=== PATIENT | female | born 1985 | race American Indian/Alaskan Native ===

== ENCOUNTER 2021-04-12 11:35 | Emergency (ER) | payer OTHER ==
[2021-04-12 11:44] VITALS: BP 166/104
[2021-04-12] MEDS ORDERED: IPRATROPIUM 0.02% NEBU 2.5 ML IH ONE (11:47)
[2021-04-12] MEDS ORDERED: methylPREDNISolone Sod Succinate 125 MG/2 ML INJ IM ONE (11:47)
[2021-04-12] MEDS ORDERED: ALBUTEROL 2.5 MG/3 ML NEBU IH ONE (11:47)
--- NOTE | 2021-04-12 11:52 | Emergency Department Report ---
ED Asthma HPI - General Chief Complaint: Dyspnea/Respdistress Stated Complaint: ASTHMA PUI?: No Time Seen by Provider: 04/12/21 11:46 Source: patient Mode of arrival: Ambulatory Limitations: No Limitations - History of Present Illness Initial Comments: The patient was evaluated in the emergency department for symptoms described in the history of present illness. He/she was evaluated in the context of the global COVID-19 pandemic, which necessitated consideration that the patient might be at risk for infection with the virus that causes COVID-19. Institutional protocols and algorithms that pertain to the evaluation of patients at risk for COVID-19 are in a state of rapid change based on information released by regulatory bodies including the CDC and federal and state organizations. These policies and algorithms were followed during the patient's care in the emergency department. Please note that these policies, procedures and recommendations changed on a rapid basis. 36-year-old -[place] female presents to the emergency room stating she has had a 2-day history of wheezing. Patient has a history of asthma states that she has been given aerosol treatments last 1 she gave this morning albuterol nebulizer 2.5 mg. She states that she continues to wheeze and was having shortness of breath when walking her daughter to the bus stop. Patient states that she is vaccinated fully. She denies any other complaints of chest wheezing and shortness of breath. Patient states she has been hospitalized for her asthma but has never been intubated. Patient states she has been compliant with her meds. Complaint: shortness of breath, wheezing Onset/Timin -: days(s) Asthma History: history of prior ED visit Severity: moderate Context: none known Treatments Prior to Arrival: inhaled bronchodilator - Related Data Current Asthma Therapy: inhaled bronchodilator Previous Rx's Medication Instructions Recorded Last Taken Type Albuterol Sulfate [Albuterol 0.63% 0.63 mg IH TID PRN #1 box 04/12/21 Unknown Rx NEBS] Ipratropium [Atrovent] 0.5 mg IH Q4HR #1 box 04/12/21 Unknown Rx Prednisone [predniSONE 5 mg (6-Day 5 mg PO .TAPER #1 tab.ds.pk 04/12/21 Unknown Rx Pack, 21 Tabs)] Allergies Allergy/AdvReac Type Severity Reaction Status Date / Time Penicillins Allergy Unknown Verified 04/12/21 11:43 ED Review of Systems ROS: Stated complaint: ASTHMA Other details as noted in HPI Comment: All other systems reviewed and negative ED Past Medical Hx - Medications Home Medications: Home Medications Medication Instructions Recorded Confirmed Last Taken Type Albuterol Sulfate [Albuterol 0.63% 0.63 mg IH TID PRN #1 box 04/12/21 Unknown Rx NEBS] Ipratropium [Atrovent] 0.5 mg IH Q4HR #1 box 04/12/21 Unknown Rx Prednisone [predniSONE 5 mg (6-Day 5 mg PO .TAPER #1 tab.ds.pk 04/12/21 Unknown Rx Pack, 21 Tabs)] ED Physical Exam - General Limitations: No Limitations General appearance: alert, in no apparent distress, other (Difficulty speaking in complete sentences) - Head Head exam: Present: atraumatic, normocephalic - Eye Eye exam: Present: normal appearance - ENT ENT exam: Present: normal external ear exam - Neck Neck exam: Present: normal inspection, full ROM - Respiratory Respiratory exam: Present: wheezes, rhonchi, accessory muscle use - GI/Abdominal GI/Abdominal exam: Present: soft. Absent: distended, tenderness - Back Exam Back exam: Present: normal inspection, full ROM - Neurological Exam Neurological exam: Present: alert, oriented X3, normal gait - Psychiatric Psychiatric exam: Present: normal affect, normal mood - Skin Skin exam: Present: warm, dry, intact, normal color. Absent: rash ED Course Vital Signs 04/12/21 11:42 Temperature 99.0 F Pulse Rate 110 H Respiratory 22 Rate Blood Pressure 166/104 [Left] O2 Sat by Pulse 97 Oximetry ED Medical Decision Making - Medical Decision Making 36-year-old -[place] female presents to the emergency room stating she has had a 2-day history of wheezing. Patient has a history of asthma states that she has been given aerosol treatments last 1 she gave this morning albuterol nebulizer 2.5 mg. She states that she continues to wheeze and was having shortness of breath when walking her daughter to the bus stop. Patient states that she is vaccinated fully. She denies any other complaints of chest wheezing and shortness of breath. Patient states she has been hospitalized for her asthma but has never been intubated. Patient states she has been compliant with her meds. Respiratory treatment of albuterol 7.5 mg inhalation, Atrovent 1 mg inhalation Solu-Medrol 125 mg IM. Respiratory has been called at 1148. Critical care attestation.: If time is entered above; I have spent that time in minutes in the direct care of this critically ill patient, excluding procedure time. ED Disposition Clinical Impression: Asthma Qualifiers: Asthma severity: moderate Asthma persistence: unspecified Asthma complication type: with acute exacerbation Qualified Code(s): J45.901 - Unspecified asthma with (acute) exacerbation Disposition: 01 HOME / SELF CARE / HOMELESS Is pt being admited?: No Does the pt Need Aspirin: No Condition: Stable Instructions: Asthma (ED), Asthma, Adult, [id number] Additional Instructions: Please complete your prednisone as prescribed. Use your breathing treatments as needed. I recommend following up with the hotel houseman I have listed their information below. I have also urged her to her primary care provider. Prescriptions: Albuterol Sulfate [Albuterol 0.63% NEBS] 0.63 mg IH TID PRN #1 box PRN Reason: Wheezing Ipratropium [Atrovent] 0.5 mg IH Q4HR #1 box Prednisone [predniSONE 5 mg (6-Day Pack, 21 Tabs)] 5 mg PO .TAPER #1 tab.ds.pk Referrals: TERRA SEGURA MD [Staff Physician] - 3-5 Days МАРИНА DAVILA MD [Staff Physician] - 3-5 Days Forms: Work/School Release Form(ED)
== END 2021-04-12 14:08 | disposition home or self-care (01) ==
LOC: ED 11:35
DX: J45.909 Unspecified asthma, uncomplicated (principal); Z88.0 Allergy status to penicillin
CPT/HCPCS: 94640; 96372; 99282; J2930; 94644